=== PATIENT | male | born 1990 | race Caucasian/White ===

== ENCOUNTER 2017-11-20 21:16 | Emergency (ER) | payer OTHER ==
[2017-11-20 21:37] VITALS: TEMP 98.2; O2SAT 99
--- NOTE | 2017-11-20 21:58 | ED PDOC ---
Arrival/HPI - General Chief Complaint: Weakness/Neurological Deficit Time Seen by Provider: 11/20/17 21:50 Historian: Patient - History of Present Illness Narrative History of Present Illness (Text): 11/20/17 21:58 27 year old male, with no significant past medical history, presents to the emergency department complaining a worsening headache. Patient describes the headache as a "heavy" sensation. He believes it may be due to his possibly elevated blood pressure. Patient reports he checked his blood pressure at [facility] as "152/90". Patient reports transient visual haziness none now.He believes all is from stress from work, but denies any fever, chills, chest pain , shortness of breath, nausea, vomiting, diarrhea, urinary symptoms, back pain, neck pain, dizziness, or any other complaints. PMD: None Symptom Onset: Sudden Symptom Course: Unchanged Quality: Other ("heavy") Activities at Onset: Light Past Medical History - Provider Review Nursing Documentation Reviewed: Yes - Psychiatric Hx Psychophysiologic Disorder: No Hx Substance Use: No Family/Social History - Physician Review Nursing Documentation Reviewed: Yes Family/Social History: No Known Family HX Smoking Status: Never Smoked Hx Alcohol Use: No Hx Substance Use: No Allergies/Home Meds Allergies/Adverse Reactions: Allergies No Known Allergies Allergy (Verified 11/20/17 21:33) Review of Systems - Physician Review All systems were reviewed & negative as marked: Yes - Review of Systems Constitutional: absent: Fevers, Other (Chills) Eyes: Vision Changes Respiratory: absent: SOB Cardiovascular: absent: Chest Pain Gastrointestinal: absent: Diarrhea, Nausea, Vomiting Genitourinary Male: absent: Dysuria, Frequency, Hematuria Musculoskeletal: absent: Back Pain, Neck Pain Neurological: Headache. absent: Dizziness Physical Exam Vital Signs Reviewed: Yes Vital Signs Temp Pulse Resp BP Pulse Ox 11/21/17 00:24 78 16 146/72 99 11/20/17 21:33 98.2 F 82 16 131/78 99 Temperature: Afebrile Blood Pressure: Normal Pulse: Regular Respiratory Rate: Normal Appearance: Positive for: Well-Appearing, Non-Toxic, Comfortable Pain Distress: None Mental Status: Positive for: Alert and Oriented X 3 - Systems Exam Head: Present: Atraumatic, Normocephalic Pupils: Present: PERRL, Other (Fundi- normal) Extroacular Muscles: Present: EOMI Conjunctiva: Present: Normal Mouth: Present: Moist Mucous Membranes Neck: Present: Normal Range of Motion Respiratory/Chest: Present: Clear to Auscultation, Good Air Exchange. No: Respiratory Distress, Accessory Muscle Use Cardiovascular: Present: Regular Rate and Rhythm, Normal S1, S2. No: Murmurs Abdomen: Present: Normal Bowel Sounds. No: Tenderness, Distention, Peritoneal Signs Back: Present: Normal Inspection Upper Extremity: Present: Normal Inspection. No: Cyanosis, Edema Lower Extremity: Present: Normal Inspection. No: Edema Neurological: Present: GCS=15, CN II-XII Intact, Speech Normal Skin: Present: Warm, Dry, Normal Color. No: Rashes Psychiatric: Present: Alert, Oriented x 3, Normal Insight, Normal Concentration Medical Decision Making ED Course and Treatment: 11/20/17 21:58 Impression: 27 year old male presents complaining of a headache believed due to possible elevated high pressure. Patient reports blurry vision. Plan: -- Head CT w/o Contrast -- Reassess and disposition Progress Notes: EXAM: CT Head Without Intravenous Contrast Dictated and Authenticated by: Marleny Garcia MD 11/20/2017 11:57 PM IMPRESSION: No acute intracranial abnormality - RAD Interpretation Radiology Orders: 11/20/17 21:58 HEAD W/O CONTRAST [CT] Stat - Medication Orders Current Medication Orders: Discontinued Medications Ibuprofen (Motrin Tab) 800 mg PO STAT STA Stop: 11/20/17 23:38 Last Admin: 11/20/17 23:50 Dose: 800 mg Disposition/Present on Arrival - Present on Arrival Any Indicators Present on Arrival: No History of DVT/PE: No History of Uncontrolled Diabetes: No Urinary Catheter: No History of Decub. Ulcer: No History Surgical Site Infection Following: None - Disposition Have Diagnosis and Disposition been Completed?: Yes Diagnosis: Headache Disposition: HOME/ ROUTINE Disposition Time: 00:17 Patient Plan: Discharge Condition: GOOD Discharge Instructions (ExitCare): Tension Headache (ED) Additional Instructions: Get proper rest/take meds as prescribed/follow up with your doctor this week Prescriptions: Acetaminophen/Butalbital/Caf [Fioricet] 1 tab PO Q6 PRN #16 tab PRN Reason: Headache Referrals: PCP,NO [Primary Care Provider] - Follow up with primary Forms: [employer] (Japanese), WORK NOTE
--- NOTE | 2017-11-20 23:58 | CT ---
EXAM: CT Head Without Intravenous Contrast EXAM DATE/TIME: 11/20/2017 9:58 PM CLINICAL HISTORY: 27 years old, male; Pain; Headache; Headache not specified TECHNIQUE: Axial computed tomography images of the head/brain without intravenous contrast. All CT scans at this facility use one or more dose reduction techniques, viz.: automated exposure control; ma/kV adjustment per patient size (including targeted exams where dose is matched to indication; i.e. head); or iterative reconstruction technique. COMPARISON: There are no prior studies for comparison. FINDINGS: Brain: Ventricles are normal in size and configuration. There is no midline shift. There are no intra-axial or extra-axial mass lesions or areas of hemorrhage. There are no abnormal fluid collections. Rodarte-white differentiation is maintained. Ventricles: See above. Bones: Cranial vault is intact. Soft tissues: unremarkable Sinuses: There is no acute sinusitis. There are retention cysts/polyps in the right maxillary sinus and left frontal sinus Ears and mastoids: Middle ears and mastoids are unremarkable Orbits: Orbital contents are unremarkable. IMPRESSION: No acute intracranial abnormality
[2017-11-21 00:25] VITALS: BP 146/72; PULSE 78; RESP 16
== END 2017-11-21 00:26 | disposition home or self-care (01) ==
LOC: ED 21:16
DX: R51 Headache (principal)

== ENCOUNTER 2018-04-16 15:48 | Emergency (ER) | payer OTHER ==
[2018-04-16 15:52] VITALS: TEMP 97.7; BMI 30.4
[2018-04-16] MEDS ORDERED: Sodium Chloride 0.9% 1,000 ML IV STA (16:45)
--- NOTE | 2018-04-16 16:48 | ED PDOC ---
Arrival/HPI - General Chief Complaint: Flu-like Symptoms Time Seen by Provider: 04/16/18 16:32 Historian: Patient - History of Present Illness Narrative History of Present Illness (Text): 04/16/18 16:45 pt p/w + ~ 3 days onset of diffuse body/joint pain; pt states pain is constant and at most pain is 10/10; pt had tried OTC meds/tylenol and bengay for pain control without much relief; pt states right hip/back pain is noted as well; pt states no fever/chills/sweats, no cp/sob/palpitations, no abd pain, no n/v, no numbness/tingling, no urinary/bowel changes, no incontinence, no fall/trauma/ sick contact, no travel; pt denied rashes, no sore throat/vision changes, no neck pain, no other complaints. pt states similar pain occurred last year and pt felt that with weather changes that the symptoms of diffuse body pain starts ; pt also is fasting for his worship holidays pt denied LOC pt is here for further eval pt's without other complaints. PCP: NONE PHX: unremarkable Family hx: mother with hx of diabetes denied hx of blood disorders Time/Duration: < week (3days) Symptom Onset: Sudden Symptom Course: Unchanged Quality: Aching, Tightness Severity Level: Severe Activities at Onset: Rest Context: Home Past Medical History - Provider Review Nursing Documentation Reviewed: Yes - Travel History Have you recently traveled outside [place] w/in the past 3 mons?: No - Past History Past History: No Previous - Infectious Disease Hx of Infectious Diseases: None - Tetanus Immunization Tetanus Immunization: Up to Date - Psychiatric Hx Psychophysiologic Disorder: No Hx Substance Use: No Family/Social History - Physician Review Nursing Documentation Reviewed: Yes Family/Social History: No Known Family HX Smoking Status: Never Smoked Hx Alcohol Use: No Hx Substance Use: No Hx Substance Use Treatment: No Allergies/Home Meds Allergies/Adverse Reactions: Allergies No Known Allergies Allergy (Verified 11/20/17 21:33) Review of Systems - Review of Systems Constitutional: Fatigue. absent: Fevers, Night Sweats Eyes: Normal. absent: Vision Changes, Photophobia ENT: Normal Respiratory: Normal. absent: SOB Cardiovascular: Normal. absent: Chest Pain Gastrointestinal: Normal. absent: Abdominal Pain, Nausea, Vomiting Genitourinary Male: Normal. absent: Dysuria Musculoskeletal: Arthralgias, Myalgias, Other (right hip pain/low back pain). absent: Back Pain, Neck Pain Skin: Normal. absent: Rash Neurological: Normal. absent: Headache, Dizziness Endocrine: Normal Hemo/Lymphatic: Normal Psychiatric: Normal Physical Exam - Physical Exam Narrative Physical Exam (Text): 04/16/18 16:47 General: alert/awake, GCS = 15, oriented x 3, resting in bed, uncomfortable, cooperative, interactive; mild distress due to pain Head: NC/AT EYE: PERRLA, EOMI, sclera anicteric, no nystagmus, no photophobia; visual field intact b/l Facial: WNL Oral: uvula/tongue are midline, no exudate/lesions, no drooling/stridor, no dysphonia; intact dentitions NECK: intact ROM, no midline tenderness, no nuchal rigidity, no meningeal signs ; no step off Chest: CTA b/l, no w/r/r; no tachypenia, no accessory muscle use noted Cardiac: +S1, +S2, no m/r/r, no tachycardia Abdominal: +BS, soft/nd/nt, well nourished patient; no masses/rebound/guarding/ rigidity; no obando's sign, no mcburney's point tenderness Extremities: intact ROM, strength 5/5 grossly intact in all limbs, neurovasc intact b/l; + ambulatory; reflex +2/2; no gross deformities noted BACK: no step off, faint lower midline tenderness, NO crepitus, no gross deformities noted; Intact ROM SKIN: cap refill < 1 sec, no ulcerations, no petechiae, no rashes NEURO: CNII-XII WNL, no facial asymmetries, no slurr speech, oriented x 3 NIH stroke scale ~ 0 Psych: normal insight, normal affect; follows command with ease Vital Signs Reviewed: Yes Vital Signs Temp Pulse Resp BP Pulse Ox 04/16/18 20:46 80 18 124/82 99 04/16/18 19:15 88 19 123/50 L 100 04/16/18 15:52 97.7 F 72 18 122/77 99 Temperature: Afebrile Blood Pressure: Normal Pulse: Regular Respiratory Rate: Normal Appearance: Positive for: Well-Appearing, Non-Toxic, Uncomfortable, Other (alert /awake, GCS = 15, oriented x 3, resting in bed, uncomfortable, mild distress due to body pain, cooperative) Pain Distress: Mild Mental Status: Positive for: Alert and Oriented X 3 - Systems Exam Head: Present: Atraumatic, Normocephalic Medical Decision Making ED Course and Treatment: 04/16/18 16:40 Impression: body malaise/pain i have consider all the differential diagnosis regarding pt's chief medical complaints/clinical findings, including but are not limited to: body aches/ malaise/pain A/P: body malaise/pain - labs - iv - xray - ua - supportive care - observe/reevaluation 04/16/18 19:45: Patient felt improved. Awaiting final disposition. 04/16/18 20:05: spoke to lab technicians, able to view pt's blood cells under microscopy, did not see any evidence of sickle cells pt is currently comfortable pt is not in any distress pt felt improved pt is made aware of his medical results pt is encouraged fluids pt is encouraged to maintain hydration during fasting (but unsure if pt will do so due to worship duty) pt will f/u as directed pt will be discharged home Re-evaluation Time: 19:45 Reassessment Condition: Improved - Lab Interpretations Lab Results: 04/16/18 17:22 04/16/18 17:22 Lab Results 04/16/18 19:11: Urine Color Yellow, Urine Appearance Clear, Urine pH 7.0, Ur Specific [place] 1.020, Urine Protein Negative, Urine Glucose (UA) Negative, Urine Ketones Negative, Urine Blood Negative, Urine Nitrate Negative, Urine Bilirubin Negative, Urine Urobilinogen 0.2, Ur Leukocyte Esterase Negative 04/16/18 17:22: pO2 45, VBG pH 7.33, VBG pCO2 58.0, VBG HCO3 30.6 H, VBG Total CO2 32.4 H, VBG O2 Sat (Calc) 84.1 H, VBG Base Excess 3.2 H, VBG Potassium 3.8, Sodium 138.0, Chloride 104.0, Glucose 96, Lactate 1.1, FiO2 21.0, Venous Blood Potassium 3.8 04/16/18 17:22: Sodium 145, Chloride 101, Potassium 3.9, Carbon Dioxide 29, Anion Gap 19, BUN 13, Creatinine 0.9, Est GFR ( Amer) > 60, Est GFR (Non- Af Amer) > 60, Random Glucose 95, Calcium 9.5, Total Bilirubin 0.6, AST 26, ALT 43, Alkaline Phosphatase 51, Total Creatine Kinase 113, Total Protein 8.1, Albumin 4.7, Globulin 3.4, Albumin/Globulin Ratio 1.4 04/16/18 17:22: WBC 4.8, RBC 5.45, Hgb 15.3, Hct 44.0, MCV 80.7, MCH 28.1, MCHC 34.8, RDW 11.9, Plt Count 232, MPV 10.3, Gran % 41.2 L, Lymph % (Auto) 46.2 H, [place] % (Auto) 9.9 H, Eos % (Auto) 2.3, Baso % (Auto) 0.4, Gran # 1.96, Lymph # ( Auto) 2.2, [place] # (Auto) 0.5, Eos # (Auto) 0.1, Baso # (Auto) 0.02 I have reviewed the lab results: Yes Interpretation: All labs normal - RAD Interpretation Narrative RAD Interpretations (Text): 04/16/18 18:41 PROCEDURE: Radiographs of the Lumbar Spine. Dictator : Zurdo Mujica MD Report Date : 04/16/2018 18:33:04 IMPRESSION: Unremarkable radiographs of the lumbar spine. PROCEDURE: Pelvis and right hip Dictator : Zurdo Mujica MD Report Date : 04/16/2018 18:34:01 IMPRESSION: Normal study. Radiology Orders: 04/16/18 16:43 HIP MIN 2V W/ PELVIS RT [RAD] Stat 04/16/18 16:44 LS SPINE AP/LAT [RAD] Stat Cylinder Devalver: Radiologist - EKG Interpretation EKG Interpretation (Text): 04/16/18 17:55 NSR at 70 bpm, normal axis, no ectopy, inverted T in leads III, no st changes, NORMAL EKG; no old ekg to compare with Interpreted by ED Physician: Yes Type: 12 lead EKG Comparison: No previous EKG avail. - Medication Orders Current Medication Orders: Discontinued Medications Sodium Chloride (Sodium Chloride 0.9%) 1,000 mls @ 999 mls/hr IV .Q1H1M STA Stop: 04/16/18 17:45 Last Admin: 04/16/18 19:03 Dose: 999 mls/hr eMAR Start Stop Document 04/16/18 19:03 HP (Rec: 04/16/18 19:03 [id number] Intravenous Solution Start Date 04/16/18 Start Time 19:03 End Date 04/16/18 End time 18:00 Total Infusion Time -63 Ketorolac Tromethamine (Toradol) 30 mg IVP STAT STA Stop: 04/16/18 16:45 Last Admin: 04/16/18 19:03 Dose: 30 mg MAR Pain Assessment Document 04/16/18 19:03 HP (Rec: 04/16/18 19:03 [id number] Pain Reassessment Is this a pain reassessment? No IVP Administration Document 04/16/18 19:03 HP (Rec: 04/16/18 19:03 [id number]) Charges for Administration # of IVP Administrations 1 Disposition/Present on Arrival - Present on Arrival Any Indicators Present on Arrival: No History of DVT/PE: No History of Uncontrolled Diabetes: No Urinary Catheter: No History of Decub. Ulcer: No History Surgical Site Infection Following: None - Disposition Have Diagnosis and Disposition been Completed?: Yes Diagnosis: Body aches, General medical exam Disposition: HOME/ ROUTINE Disposition Time: 20:25 Patient Plan: Discharge Condition: STABLE Discharge Instructions (ExitCare): Acute Pain, Adult (DC), Yearly Physical for Adults Print Language: TANZANIAN Additional Instructions: Make sure to see your doctor in 1-2 days DRINK PLENTY OF FLUIDS take your medications as prescribed RETURN TO ED IF worse pain, cant breath, persistent vomiting, high fever >101- 102 for hours, altered behavior, slurr speech, facial changes, focal weakness ( arm/leg or both), unable to urinate, heavy/persistent bleeding, passing out, chest pain, or other medical emergencies Prescriptions: Ibuprofen [Motrin] 600 mg PO TID PRN #30 tab PRN Reason: Pain, Mild (1-3) Referrals: PCP,NO [Primary Care Provider] - Follow up with primary [facility] [Outside] - Follow up with primary [facility] [Outside] - Follow up with primary [facility] [Outside] - Follow up with primary Forms: [employer] (Albanian)
[2018-04-16 17:29] LABS: BASO # 0.02 K/mm3 (0.0-2.0); BASO % 0.4 % (0.0-3.0); EOS # 0.1 (0.0-0.7); EOS % 2.3 % (1.5-5.0); GRAN # 1.96 (1.4-6.5); GRAN % 41.2 % (50.0-68.0); HEMOGLOBIN 15.3 g/dL (14.0-18.0); LYMPH # 2.2 (1.2-3.4); LYMPH % 46.2 % (22.0-35.0); MEAN CELL VOLUME 80.7 fl (80.0-105.0); MEAN CORPUSCULAR HEMOGLOBIN 28.1 pg (25.0-35.0); MEAN CORPUSCULAR HGB CONC 34.8 g/dl (31.0-37.0); MEAN PLATELET VOLUME 10.3 fl (7.0-11.0); MONO # 0.5 (0.1-0.6); MONO % 9.9 % (1.0-6.0); RBC 5.45 10^6/uL (3.5-6.1); RED CELL DISTRIBUTION WIDTH 11.9 % (11.5-14.5); VENOUS BLOOD GAS BASE EXCESS 3.2 mmol/L (0.0-2.0); VENOUS BLOOD GAS PO2 45 mm/Hg (30-55); VENOUS BLOOD PH 7.33 (7.32-7.43); WHITE BLOOD COUNT 4.8 10^3/ul (4.5-11.0)
[2018-04-16 17:42] LABS: ALB/GLOB RATIO 1.4 (1.1-1.8); ALBUMIN 4.7 g/dL (3.0-4.8); ALT/SGPT 43 U/L (7-56); AST/SGOT 26 U/L (17-59); BLOOD UREA NITROGEN 13 mg/dL (7-21); CALCIUM 9.5 mg/dL (8.4-10.5); GFR AFRICAN-AMERICAN > 60; GFR NON-AFRICAN AMERICAN > 60
--- NOTE | 2018-04-16 18:34 | RAD ---
PROCEDURE: Radiographs of the Lumbar Spine. HISTORY: Atraumatic, R hip pain/back pain, diffuse body pain COMPARISON: No prior. FINDINGS: BONES: Normal alignment. No listhesis. No fracture. DISC SPACES: Unremarkable. OTHER FINDINGS: None. IMPRESSION: Unremarkable radiographs of the lumbar spine.
--- NOTE | 2018-04-16 18:35 | RAD ---
PROCEDURE: Pelvis and right hip HISTORY: Atrumatic, R hip pain/back pain, diffuse body pain COMPARISON: April 16, 2018. Lumbosacral spine. TECHNIQUE: Standard protocol for this study/examination. FINDINGS: There are no osseous abnormalities to suggest fracture. The pelvic ring is intact. Preserved femoral-acetabular relationship. Negative study for protrusio, subluxation or dislocation. Degenerative changes: None. IMPRESSION: Normal study.
[2018-04-16 19:20] LABS: URINE BILIRUBIN NEGATIVE (NEGATIVE); URINE BLOOD NEGATIVE (NEGATIVE); URINE GLUCOSE (UA) NEGATIVE (NEGATIVE); URINE LEUKOCYTE ESTERASE NEGATIVE Leu/uL (NEGATIVE); URINE PROTEIN NEGATIVE mg/dL (<30 mg/dL); URINE UROBILINOGEN 0.2 E.U./dL (<1 E.U./dL)
[2018-04-16 19:21] LABS: URINE APPEARANCE CLEAR (CLEAR); URINE COLOR YELLOW (YELLOW)
[2018-04-16 20:50] VITALS: BP 124/82; PULSE 80; RESP 18; O2SAT 99
--- NOTE | 2018-04-17 12:17 | CARD ---
APPROVED REPORT EKG Measurement Heart [id number] <Conclusion> Normal sinus rhythm Normal ECG
== END 2018-04-16 20:46 | disposition home or self-care (01) ==
LOC: ED 15:48
DX: M79.1 Myalgia (principal)
CPT/HCPCS: 72100; 73502; 80053; 81003; 82550; 82803; 85025; 93005; 96374; 99284; J1885; J7040